=== PATIENT | female | born 1965 | race Caucasian/White ===

== ENCOUNTER 2018-09-11 15:50 | Emergency (ER) | payer MEDICARE, SELFPAY ==
[2018-09-11 15:55] VITALS: BP 155/88; PULSE 88; RESP 16; TEMP 36.8; O2SAT 99
--- NOTE | 2018-09-11 16:05 | DI.RAD_ITS ---
SYMPTOM/DIAGNOSIS: COUGH PA AND LATERAL CHEST: When compared with the previous study of 03/05/18 there has been a question regarding interval increased prominence of the mediastinum although this may be on a technical basis. The possibility of adenopathy or mass could not be entirely excluded. In addition there is a faint area of increased density projected over the left lower lobe posteriorly which is not appreciated on the patient's previous images of 03/05/18 and likely represents a small patch of pneumonitis. There is no pleural effusion. The heart is not enlarged. The hilar structures, mediastinum and tracheal air column appear intact. SUMMARY: Findings which could be consistent with an acute left lower lobe pneumonitis. Note is also made of a question regarding increased widening of the mediastinum since the previous exam of 03/05/2018 and further assessment with CT is suggested.
--- NOTE | 2018-09-11 16:10 | ED.GENADUL_ITS ---
Discharge Plan Disposition Patient Disposition: HOME Condition: Improving Discharge Details Chief Complaint: RespSymp Clinical Impression: Acute bronchitis with bronchospasm Primary Care Provider: SaraLocal ED Provider: Darren Washburn Home Meds and New Rx's Prescriptions: New doxycycline hyclate 100 mg capsule 100 mg PO BID 10 Days Qty: 20 RF: 0 codeine-guaifenesin 7.5-225 mg/5 mL liquid 5 ml PO Q4H PRN (Reason: cough) Qty: 100 RF: 0 Continued lisinopril-hydrochlorothiazide 1 EACH tablet 1 tab PO DAILY RF: 0 pantoprazole [Protonix] 20 MG tablet,delayed release (DR/EC) 20 mg PO DAILY RF: 0 ergocalciferol (vitamin D2) [Vitamin D2] 50,000 UNITS capsule 1 tab PO .WEEKLY RF: 0 ibuprofen 600 MG tablet 600 mg PO Q6H PRN (Reason: Pain) Qty: 16 RF: 0 Discontinued hydrocodone-acetaminophen 1 TAB tablet 1 tab PO Q6H PRN (Reason: Severe Pain) Qty: 6 RF: 0 Discharge Instructions Instructions: Acute Bronchitis (ED) Additional Instructions: Home to rest. May use the inhaler, as instructed for wheezing during times of illness. Return if you are requiring the inhaler more than every 4 hours. Home to rest today. Small, frequent sips of fluids to maintain hydration. May use the prescribed cough syrup as needed for persistent coughing. Please take antibiotics as prescribed Follow-up with regular doctor upon your return to [place]. Return to the emergency department for any acute concerns while in the area Medical Decision Making 53-year-old female presents with cough, congestion, wheezing over 4 days time with associated subjective fever and chills. She arrives with normal oxygenation and is afebrile after taking an antipyretic at home. Her exam reveals diffuse wheezing and cough. Differential diagnosis includes bronchitis bronchospasm and must rule out pneumonitis. Patient given albuterol inhaler and Tessalon, referred for chest x-ray. The patient's chest radiograph reveals left base atelectasis versus infiltrate. Consistent with developing pneumonitis. Patient may require ongoing use of albuterol antagonist at home for bronchospasm. I will place her on a course of antibiotics as well as a small amount of antitussive medication for home. She is stable and she is improving. She understands return precautions to the ED. HPI General Mode of arrival: ambulatory . Date/Time Provider Initiated Documentation: 09/11/18 15:51 . Limitations to Documentation: no limitations . Information obtained by: patient . History of Present Illness 53 year old F presents to the emergency department with the chief complaint of Cough, congestion, wheezing over 4 days time, described as moderate, Quality is described as dull and constant, and is localized to the chest. Patient reports no radiation. Patient started experiencing this day(s) and it has been constant. No relieving factors improve symptom(s), No exacerbating factors reported . Patient notes fever/chills. Patient did receive the following treatments prior to arrival, none Related Data Home Medications Medication Instructions Recorded Confirmed ergocalciferol (vitamin D2) 1 tab PO .WEEKLY 12/28/16 09/11/18 [Vitamin D2] lisinopril-hydrochlorothiazide 1 tab PO DAILY 12/28/16 09/11/18 pantoprazole [Protonix] 20 mg PO DAILY 12/28/16 09/11/18 ibuprofen 600 mg PO Q6H PRN #16 tab 03/05/18 09/11/18 codeine-guaifenesin 5 ml PO Q4H PRN #100 ml 09/11/18 doxycycline hyclate 100 mg PO BID 10 Days #20 cap 09/11/18 Previous Rx's Medication Instructions Recorded ibuprofen 600 mg PO Q6H PRN #16 tab 03/05/18 codeine-guaifenesin 5 ml PO Q4H PRN #100 ml 09/11/18 doxycycline hyclate 100 mg PO BID 10 Days #20 cap 09/11/18 Allergies Allergy/AdvReac Type Severity Reaction Status Date / Time No Known Allergies Allergy Unverified 03/05/18 15:57 General Stated Complaint: RespSymp ALEKSANDRA: 3 Review of Systems Review of Systems 6 systems reviewed and otherwise neg PFSH Social History Smoking/Tobacco Use Status: Never Exam Narrative Exam Narrative: GEN: awake, alert, oriented 3. Pleasant, well groomed, interactive. HEAD: Normocephalic, atraumatic ENT: Mucous membranes moist, oropharynx unremarkable, External ear exam unremarkable EYES: PERRL, EOMI NECK: Full ROM, no KRYS, no menigismus CHEST/RESP: Nontender, cough noted with bilateral end exp wheeze CARDIOVASCULAR: RRR, no murmur, rub marie. 2+ Rad pulse bilateral ABDOMEN: Soft, nontender, no mass. +Bowel sounds EXT: Full ROM, no edema, no rash Neuro: Grossly normal neurologic exam, conversant, interactive. Psych: Speech fluent, thoughts congruent, affect normal Course Vital Signs Temperature 36.8 C 09/11/18 15:55 Pulse 88 09/11/18 15:55 Respiratory Rate 16 09/11/18 15:55 Blood Pressure 155/88 H 09/11/18 15:55 Pulse Oximetry 99 09/11/18 15:55 Temperature 36.8 C 09/11/18 15:55 Temperature Source Temporal Artery Scan 09/11/18 15:55 Pulse 88 09/11/18 15:55 Respiratory Rate 16 09/11/18 15:55 Respiratory Effort 09/11/18 16:00 Blood Pressure 155/88 H 09/11/18 15:55 Blood Pressure Position Sitting 09/11/18 15:55 Pulse Oximetry 99 09/11/18 15:55 Oxygen Delivery Method Room Air 09/11/18 15:55 Oxygen Flow Rate 0 09/11/18 15:55 Pain Level 5 09/11/18 15:55 Comment 09/11/18 15:55
[2018-09-11] MEDS: Benzonatate 100 MG CAP 200 MG PO (16:18)
[2018-09-11] MEDS: Albuterol HFA 8 GM 60 PUFF INH IH (16:19)
--- NOTE | 2018-09-11 17:28 | DI.VRAD_ITS ---
EXAM: XR Chest, 2 Views EXAM DATE/TIME: 09/11/2018 4:07 PM CLINICAL HISTORY: 53 years old, female; Pain; Other: Cough TECHNIQUE: XR of the chest, 2 views. COMPARISON: CR RIGHT RIBS TO INCLUDE CXR 03/05/2018 5:02 PM FINDINGS: Lungs: Minimal streaky opacity in the LEFT lung base could represent infiltrate or segmental atelectasis. RIGHT lung is clear. Pleural space: There is no evidence of pleural effusion or pneumothorax. Heart/Mediastinum: Mild enlargement of the cardiomediastinal silhouette. Bones/joints: No acute osseous findings. IMPRESSION: 1. Enlargement of the cardiomediastinal silhouette and since the previous exam. It is possible that this is technical. However, true enlargement should be considered. 2. Streaky opacity at the LEFT lung base may represent subsegmental atelectasis or infiltrate, new since the previous exam. Dictated and Authenticated by: Pina Talley MD. Ordering:ISAIAH Banks MD
--- NOTE | 2018-09-11 19:10 | RESPIRATORY ---
09/08/2018-MDI and Spacer education with Pt. Pt has good technique with 10 sec breath hold.
== END 2018-09-11 17:37 | disposition home or self-care (01) ==
LOC: ER 16:57
PROVIDERS: Emergency Provider Emergency Medicine
DX: J20.9 Acute bronchitis, unspecified (principal)
CPT/HCPCS: 94640; 99283; 71046

== ENCOUNTER 2022-11-23 11:39 | Outpatient (REF) | payer OTHER, SELFPAY ==
[2022-11-23 13:48] LABS: Bilirubin Negative (Negative); Blood Negative (Negative); Clarity Clear (Clear); Glucose 100 mg/dL (Negative); Ketones Negative (Negative); Leukocyte Esterase Negative (Negative); Nitrite Positive (Negative)
[2022-11-23 14:05] LABS: Bacteria Few HPF (Negative); C & S Indicated? Yes; Casts 0-2 Hyaline LPF (Negative); Crystals Negative HPF (Negative); Epithelial Cells Rare HPF (Negative); Mucus Negative (Negative); RBC Negative HPF (0-2); WBC Negative HPF (0-5)
== END 2022-11-23 11:40 | disposition home or self-care (01) ==
LOC: LBN 11:39
PROVIDERS: Visit Provider Nurse Practitioner Family
DX: R39.89 Other symptoms and signs involving the genitourinary system (principal); R30.0 Dysuria
CPT/HCPCS: 81003; 81015; 87086

== ENCOUNTER 2022-11-27 15:45 | Outpatient (REF) | payer OTHER, SELFPAY ==
[2022-11-27 20:59] LABS: Bilirubin Negative (Negative); Blood Trace-intact (Negative); Clarity Sl Cloudy (Clear); Glucose 100 mg/dL (Negative); Ketones Negative (Negative); Leukocyte Esterase Negative (Negative); Nitrite Positive (Negative); Specific Gravity 1.015 (1.005-1.025)
[2022-11-27 21:13] LABS: Bacteria Moderate HPF (Negative); C & S Indicated? Yes; Casts Negative LPF (Negative); Crystals Negative HPF (Negative); Epithelial Cells Few HPF (Negative); Mucus Negative (Negative); Other Cells Negative (Negative)
== END 2022-11-27 15:46 | disposition home or self-care (01) ==
LOC: LBN 15:45
PROVIDERS: Visit Provider Physician Assistant
DX: R30.0 Dysuria (principal); N39.0 Urinary tract infection, site not specified
CPT/HCPCS: 81003; 81015; 87086

== ENCOUNTER 2025-05-22 18:56 | Emergency (ER) | payer OTHER, SELFPAY ==
--- NOTE | 2025-05-22 19:00 | RT.EKG_ITS ---
APPROVED REPORT Exam: Resting ECG Reason for Exam: abd pain into chest Patient Location: E HR:83 bpm ECG Measurements Heart Rate 83 AXIS MD 157 P 75 QRSd 97 QRS 81 QT 383 T 62 QTc 451 Conclusion Sinus rhythm...normal P axis, V-rate 60- [address] segment or T wave abnormalities to suggest occlusive NC
[2025-05-22 19:01] VITALS: BP 137/92; PULSE 80; RESP 16; TEMP 36.6; O2SAT 100
[2025-05-22 19:06] VITALS: BP 137/92; PULSE 80; RESP 16; TEMP 36.6; O2SAT 100
--- NOTE | 2025-05-22 19:15 | DI.CT_ITS ---
Exam(s) CT ABDOMEN PELVIS CTA EXAM: CT ABDOMEN PELVIS CTA CLINICAL HISTORY: sudden severe LLQ pain, guarding, TTP. TECHNIQUE: Imaging Protocol: Axial CT angiography was performed with multi- slice acquisition and multi-planar and/or 3D reconstructions. CONTRAST MATERIAL: Intravenous: Omnipaque 350 Contrast volume:75 ml Oral: no COMPARISON: No exams were available for comparison FINDINGS: Vasculature: There no visible atherosclerotic changes Aorta: No aneurysm. No dissection. No significant stenosis. Iliac Arteries: No evidence of stenosis. Common Femoral Arteries: No evidence of stenosis. Celiac [place]:No evidence of stenosis. SMA: No evidence of stenosis. Renal Arteries: No evidence of stenosis. There is a single renal artery perfusing each kidney. RENETTA: Patent. Venous structures: Patent. Lung bases:No acute findings. Liver: Normal size. Normal density. No suspicious mass. Tiny hemangioma near the liver dome. No follow-up recommended. Gallbladder and biliary tract: No evidence of calculi. No gallbladder wall thickening. No biliary dilation. Pancreas: Normal density, no abnormal calcifications or inflammatory process. Spleen: Normal. Kidneys: Normal size, contour and axis. No obstructive uropathy. No suspicious masses seen. No evidence of calculi. Adrenal glands: No masses seen. Bladder: Arm obscured by artifact from hip prostheses. Bowel: Evaluation somewhat limited due to lack of intra-abdominal fat and lack of oral contrast. No obstruction or bowel wall thickening. Increased quantity of stool and fecalization of distal small bowel, consistent with constipation. Peritoneal cavity: No ascites. No focal collection. No mesenteric inflammatory response. Lymph nodes: Within normal limits. Reproductive: This region is obscured by artifact from hip prosthesis. Soft Tissues:Unremarkable. Bones: Bilateral hip prostheses create artifact in the pelvis. There are degenerative disc changes from L3-4 through L5-S1. IMPRESSION: No evidence of aneurysm or dissection. No evidence vascular occlusion or significant stenosis. No significant atherosclerotic disease. No evidence of mesenteric ischemia. The exam is limited by lack of intra- abdominal fat and artifact from bilateral hip prostheses. Large quantity of stool consistent with constipation. The preliminary [facility] report was reviewed. RADIATION DOSE DELIVERED: Total DLP DATA REPOSITORY: All CT scans at this facility are submitted to the National Radiology Data Registry (NRDR) Dose Index Registry (DIR) with the [employer] (ACR). RADIATION OPTIMIZATION: All CT scans at this facility use at least one of these dose optimization techniques: automated exposure control; mA and/or kV adjustment per patient size (includes targeted exams where dose is matched to clinical indication); or iterative reconstruction.
--- NOTE | 2025-05-22 19:22 | W.ED.GENAD ---
Discharge Plan Disposition Patient Disposition: Against Medical Advice Condition: Serious Discharge Details Clinical Impression: Abdominal pain Primary Care Provider: Sara,Local ED Provider: Haven Panda Home Meds and New Rx's Prescriptions: Continued sumatriptan succinate 100 mg tablet See Rx Instructions PO .COMPLEX Qty: 10 0RF Rx Instructions: take 1 tab at onset of headache; if no relief, may repeat 1 tab after at least 2 hrs; max = 2 tabs/24 hrs PO phenazopyridine [Pyridium] 200 mg tablet 200 mg PO TID PRN (Reason: pain) Qty: 6 0RF phenazopyridine [Pyridium] 100 mg tablet 100 mg PO QPC PRN (Reason: pain) Qty: 6 0RF lisinopril-hydrochlorothiazide 1 EACH tablet 1 tab PO DAILY pantoprazole [Protonix] 20 MG tablet,delayed release (DR/EC) 20 mg PO DAILY Discharge Instructions Instructions: Ovarian Torsion, Abdominal Pain, Adult ED Additional Instructions: -Your blood work is overall reassuring; you do have a slightly low sodium and magnesium and should followup with your primary care doctor for this. -Your CT scan did now show any reason for your pain. You do have an incidental renal cyst; you should also followup with your primary care doctor for this as they may want to repeat imaging at some point. -Your severe lower abdominal pain is worrisome for something called ovarian torsion- this requires an ultrasound to diagnosis and is surgical emergency. If untreated it can lead to loss of the ovary, necrosis, infection, sepsis, and possibly . We have not ruled this out with the CT scan. I would also like to repeat your cardiac enzymes (which were normal) to see if they are changing since you had some possible chest pain earlier; it is unlikely but not impossible that you are having a heart attack. It is also possible you have a urinary tract infection and we would like to test your urine. -We would like you to stay in the emergency department for an ultrasound (or if not able to call someone in, transfer to a facility capable of such) but have chosen to leave against medical advice. I know your pain is better but this may be because of the morphine. Please return immediately if your pain returns, if you are able to deal with the tasks you need to address at home, or if you change your mind. We would be happy to see you again. HPI General Mode of arrival: ambulatory. Date/Time Provider Initiated Documentation: 05/22/25 18:59. Limitations to Documentation: no limitations. Information obtained by: patient. HPI Narrative: 60yo F with hx of HTN, arthritis, pituitary adenoma surgical resected over 10 years ago, presenting with acute severe LLQ abdominal pain. Started about an hour prior to arrival, 06/26, at it's worse makes it so she is in too much pain to walk or take a deep breath. Located in LLQ, at one point felt like it 'shot up' her left side to under breast. Nausea when the bad is very bad, no vomiting. No diarrhea. No bloody stool or melena. LBM yesterday, normal. No dysuria, hematuria, or flank pain. Presented initially to urgent care; was sent to the ED (did receive 1g tylenol [employer]). Aside from episode of radiation to under left breast, no chest pain at any point. No shortness of breath or lighttheadedness. Has never has pain like this before. Post menopausal. Otherwise in her usual state of health with no fevers, chills, rash, LE edema, or other concerns. Related Data Home Medications ?Medication ?Instructions ?Recorded ?Confirmed lisinopril 20 1 tab PO DAILY 12/28/16 05/22/25 mg-hydrochlorothiazide 12.5 mg tablet pantoprazole 20 mg tablet,delayed 20 mg PO DAILY 12/28/16 05/22/25 release (Protonix) phenazopyridine 100 mg tablet 100 mg PO QPC PRN pain 6 doses #6 11/23/22 05/22/25 (Pyridium) tabs phenazopyridine 200 mg tablet 200 mg PO TID PRN pain 6 doses #6 11/27/22 05/22/25 (Pyridium) tabs sumatriptan succinate 100 mg tablet See Rx Instructions PO .COMPLEX 11/27/22 05/22/25 #10 tabs Previous Rx's ?Medication ?Instructions ?Recorded phenazopyridine 100 mg tablet 100 mg PO QPC PRN pain 6 doses #6 11/23/22 (Pyridium) tabs phenazopyridine 200 mg tablet 200 mg PO TID PRN pain 6 doses #6 11/27/22 (Pyridium) tabs sumatriptan succinate 100 mg tablet See Rx Instructions PO .COMPLEX 11/27/22 #10 tabs Allergies Allergy/AdvReac Type Severity Reaction Status Date / Time No Known Allergies Allergy Verified 05/22/25 19:00 General Stated Complaint: Abd Prob ALEKSANDRA: 3 Review of Systems Narrative: see HPI Exam Narrative Exam Narrative: General: Alert, appears to be in pain Head: Normocephalic, atraumatic Neck: Trachea midline, ?Neck supple. ENT: ?MMM.? No oropharygeal lesions or exudate. Cardiac: ?RRR, no murmurs appreciated Resp: No respiratory distress. CTAB. Abd: ?Soft, non-distended, TTP of left LLQ with guarding. : ?No suprapubic tenderness. No CVA tenderness. Extremities: ?No deformities.? No peripheral edema. Neurologic: GCS 15. ? Moves all extremities freely against gravity Course Vital Signs Vital signs: Vital Signs Temperature 36.6 C 05/22/25 19:01 Pulse 80 05/22/25 19:01 Respiratory Rate 16 05/22/25 19:01 Blood Pressure 137/92 H 05/22/25 19:01 Pulse Oximetry 100 05/22/25 19:01 Temperature 36.6 C 05/22/25 19:06 Temperature Source Tympanic 05/22/25 19:06 Pulse 80 05/22/25 19:06 Respiratory Rate 16 05/22/25 19:06 Blood Pressure 137/92 H 05/22/25 19:06 Blood Pressure Position Supine 05/22/25 19:06 Pulse Oximetry 100 05/22/25 19:06 Oxygen Delivery Method Room Air 05/22/25 19:06 Oxygen Flow Rate 0 05/22/25 19:06 Pain Level 10 05/22/25 19:06 Medical Decision Making 60yo F with hx of HTN, arthritis, pituitary adenoma surgical resected over 10 years ago, presenting with acute severe LLQ abdominal pain. Started about an hour prior to arrival, 06/26. No vomiting, diarrhea, or GI bleeding. No urinary symptoms. No vaginal discharge or bleeding. Pain did radiate upward to left breast briefly; low suspicion for ACS but will get EKG and troponins. Appears to be in severe pain on arrival, LLQ TTP with voluntary guarding. Broad differential of serious pathology including bowel obstruction, complicated diverticultis, mesenteric ischemia, nephrolithiasis, ovarian cyst rupture, ovarian torsion, etc. Will give morphine and zofran for symptoms while awaiting results of workup. -EKG SR, appropriate intervals, no ST segment or T wave abnormalities to suggest occlusive UT. -Labs reviewed as below, CBC reassuring with no leukocytosis or anemia, CMP with no actionable abnormalities, Mg borderline low at 1.7 (oral replacement ordered), lipase not suggestive of pancreatitis, BNP not suggestive of heart failure, initial troponin normal. Will get 1 hour trop to followup. Awaiting urine for UA. -CTA abd pelvis independently reviewed; no free fluid or clear obstruction on my view, radiology read below with no acute findings. On reassessment patient reports pain has improved. Abd remains moderately tender though much less than before, no guarding. Vital signs remain reassuring. I remain concerned for ovarian pathology including torsion (possibly intermittent); plan for pelvic exam and US. Attempted to call in someone in to perform pelvic US (sporadic US availability at night) with possible need for transfer to another facility if no-one available. Patient subsequently stating she needs to leave. I discussed at length her my concerns for life-threatening pathology with an emphasis on ovarian torsion as I feel this is a likely diagnosis given the severity of her symptoms on arrival and the results of her workup thus far; she verbalized understanding of my concerns and states that she needs to leave as her mother is at home alone and unwell (currently undergoing chemotherapy) and does not do well at home by herself at night. I empathized with this but advised her that I would be quite around about her should she choose to leave and again stressed the potential for deterioration in her condition up to and including and permanent disability; she voiced understanding of these concerns and again stated that she needed to leave. She demonstrates decision making capacity and I have no indication to hold her against her will. Left AMA; she was encouraged to return to the ED should she change her mind, her symptoms worsen, or should she be able to make arrangements for her mother and she expressed understanding of this. Left AMA. Discharge instructions were reviewed with patient who verbalized understanding; all questions were answered. IMPRESSION: 1. Limited study given streak artifact in the pelvis. 2. No acute intra-abdominal findings where visualized. 3. The appendix is not visualized; however there are no ancillary findings to suggest acute appendicitis. Lab Data Lab results reviewed: Yes I reviewed the patient's lab results. Labs: Laboratory Tests Range/Units 05/22/25 05/22/25 05/22/25 19:30 20:20 22:20 WBC (4.4-10.8) 10^3/uL 6.57 RBC (3.93-5.22) 10^6/uL 3.84 L Hgb (11.2-15.7) g/dL 12.0 Hct (36.0-46.0) % 35.5 L MCV (80-95) fL 92 MCH (27.0-33.0) pg 31.3 MCHC (32.0-36.0) % 33.8 RDW (11.7-14.6) % 12.4 Plt Count (130-400) 10^3/uL 375 MPV (8.0-11.0) fL 9.6 Immature Gran % % 0.3 Neutrophils % % 60.1 Lymphocytes % % 31.2 Monocytes % % 6.7 Eosinophils % % 0.6 Basophils % % 1.1 Nucleated RBC % (0.0-0.3) % 0.0 Absolute Neutrophils (1.2-6.7) 10^3/uL 3.95 Absolute Lymphocytes (1.2-3.4) 10^3/uL 2.05 Absolute Monocytes (0.1-0.8) 10^3/uL 0.44 Absolute Eosinophils (0.0-0.7) 10^3/uL 0.04 Absolute Basophils (0.0-0.2) 10^3/uL 0.07 VBG Lactate (<or=2.0) mmol/L 0.8 Sodium (136-145) mmol/L 134 L Potassium (3.5-5.1) mmol/L 3.8 Chloride (98-107) mmol/L 98 Carbon Dioxide (21.0-32.0) mmol/L 29.0 Anion Gap (3-11) mmol/L 7.0 BUN (7-18) mg/dL 17 Creatinine (0.55-1.02) mg/dL 0.6 Est GFR (CKD-EPI 2020) (mL/min/1.73m2) 103.98 Glucose (74-106) mg/dL 93 Calcium (8.5-10.1) mg/dL 8.9 Magnesium (1.8-2.4) mg/dL 1.7 L Total Bilirubin (0.2-1.0) mg/dL 0.4 AST (15-37) U/L 18 ALT (14-59) U/L 30 Alkaline Phosphatase (46-116) U/L 66 Troponin I (<or=51) ng/L 5 Cancelled Cancelled NT-Pro-B Natriuret Pep (<300) pg/mL 40 Total Protein (6.4-8.2) g/dL 6.7 Albumin (3.4-5.0) g/dL 4.1 Lipase (<78) U/L 56 Serum HCG, Qual Negative PFSH All Active Problems (Updated 05/22/25 @ 20:58 by Haven Panda MD) Abdominal pain (Acute) Social History Smoking/Tobacco Use Status: Never Smoking risk assessment performed?: Yes Alcohol Intake: never Drug use: Never Housing: house Do you feel safe at home: Yes Do you feel safe in your relationship?: Yes
[2025-05-22 19:39] LABS: Abs Immature Grans 0.02 10^3/uL (0.0-0.06); HCT 35.5 % (36.0-46.0); HGB 12.0 g/dL (11.2-15.7); Immature Grans % 0.3 %; MCH 31.3 pg (27.0-33.0); MCHC 33.8 % (32.0-36.0); MCV 92 fL (80-95); MPV 9.6 fL (8.0-11.0); Platelet Count 375 10^3/uL (130-400); RBC 3.84 10^6/uL (3.93-5.22); RDW 12.4 % (11.7-14.6); RDW-SD 42.2 fL; WBC 6.57 10^3/uL (4.4-10.8)
[2025-05-22] MEDS: Ondansetron 4 MG/2 ML VIAL IVP (19:43)
[2025-05-22] MEDS: MORPHine 4 MG/ML SYR IVP (19:43)
[2025-05-22] MEDS: Normal Saline - Diluent 50 ML VIAL IJ (19:44)
[2025-05-22] MEDS: Normal Saline Flush 10 ML SYR IVP (19:44)
[2025-05-22] MEDS: Omnipaque 350 MG/ML 100 ML BTL IJ (19:45)
[2025-05-22 19:52] LABS: HCG Qual (Serum) Negative
[2025-05-22 20:03] LABS: ALT 30 U/L (14-59); AST 18 U/L (15-37); Albumin 4.1 g/dL (3.4-5.0); Alkaline Phosphatase 66 U/L (46-116); Anion Gap 7.0 mmol/L (3-11); BUN 17 mg/dL (7-18); Bilirubin, Total 0.4 mg/dL (0.2-1.0); CO2 29.0 mmol/L (21.0-32.0); Calcium 8.9 mg/dL (8.5-10.1); Chloride 98 mmol/L (98-107); Estimated GFR 103.98 (mL/min/1.73m2); Glucose 93 mg/dL (74-106); Lipase 56 U/L (<78); Magnesium 1.7 mg/dL (1.8-2.4); NT-proBNP 40 pg/mL (<300); Potassium 3.8 mmol/L (3.5-5.1); Sodium 134 mmol/L (136-145); Total Protein 6.7 g/dL (6.4-8.2); Troponin I 5 ng/L (<or=51)
--- NOTE | 2025-05-22 20:33 | DI.[facility]AD_ITS ---
PROCEDURE INFORMATION: Exam: CTA Abdomen and Pelvis With Contrast Exam date and time: 05/22/2025 7:22 PM Age: 60 years old Clinical indication: Other: Sudden severe llq pain, guarding, ttp TECHNIQUE: Imaging protocol: Computed tomographic angiography of the abdomen and pelvis with contrast. Exam focused on the arteries. 3D rendering (Not supervised by radiologist): MIP and/or 3D reconstructed images were created by the technologist. Contrast material: OMNIPAQUE 350; Contrast volume: 75 ml; Contrast route: INTRAVENOUS (IV); COMPARISON: No relevant prior studies available. FINDINGS: Lungs: Lung bases are clear. Aorta: The aorta demonstrates normal course and caliber. Celiac trunk and mesenteric arteries: The SMA and celiac axis are widely patent. The RENETTA is widely patent. Renal arteries: The renal arteries are widely patent. Right iliac arteries: No occlusion or significant stenosis. Left iliac arteries: No occlusion or significant stenosis. Liver: The liver has a normal appearance. A hypervascular focus is present within the right lobe suggesting a flash filling hemangioma. Gallbladder and biliary ducts: The gallbladder is unremarkable. No biliary ductal dilatation. Pancreas: The pancreas demonstrates normal size. No pancreatic ductal dilatation. Spleen: The spleen demonstrates normal size. Adrenal glands: The adrenal glands have a normal appearance. Kidneys and ureters: There is a low-density left renal cyst. The kidneys are normal in size. Stomach and bowel: The bowel demonstrates overall normal caliber and wall thickness. Appendix: The appendix is not visualized; however there are no ancillary findings to suggest acute appendicitis such as free right lower quadrant fluid or perienteric fat stranding. Intraperitoneal space: Unremarkable. No free air. No significant fluid collection. Lymph nodes: Unremarkable. No enlarged lymph nodes. Urinary bladder: The bladder is grossly normal but is poorly characterized given streak artifact. Reproductive: The uterus and ovaries are not visualized. Bones/joints: Bones have a normal appearance. No acute fracture or suspicious bone lesion. Bilateral hip arthroplasties are grossly intact. Soft tissues: Unremarkable. IMPRESSION: 1. Limited study given streak artifact in the pelvis. 2. No acute intra-abdominal findings where visualized. 3. The appendix is not visualized; however there are no ancillary findings to suggest acute appendicitis. Dictated and Authenticated by: Patricia Corona MD. Orderin Amarilys Orourke MD
[2025-05-22] MEDS: Magnesium Gluconate 500 MG TAB PO (21:16)
[2025-05-22 21:25] VITALS: BP 116/75; PULSE 92; RESP 17; TEMP 36.9; O2SAT 99
== END 2025-05-22 21:34 | disposition left against medical advice (07) ==
PROVIDERS: Emergency Provider Student in an Organized Health Care Education/Training Program
DX: R10.32 Left lower quadrant pain (principal); Z86.018 Personal history of other benign neoplasm
CPT/HCPCS: 99283; 99285; 96374; 96375; 36415; 80053; 83690; 93005; 74174; 83605; 83735; 83880; 84484; 84703; 85025; 93010; J2270; J2405; J3490

== ENCOUNTER 2025-08-05 15:57 | Outpatient (CLI) | payer OTHER, SELFPAY ==
--- NOTE | 2025-08-05 13:38 | DI.RAD_ITS ---
Exam(s) XR SHOULDER RT COMPLETE 2+V EXAM: XR SHOULDER RT COMPLETE 2+V CLINICAL HISTORY: RIGHT SHOULDER PAIN. TECHNIQUE: 2D digital imaging was performed. Five views. COMPARISON: CR XR CHEST 2V PA LATERAL from 09/11/2018 FINDINGS: BONES: No acute fracture is present. There is a large defect at the articular surface of the humeral head which appears old. No bony destructive lesion is seen. JOINTS: No dislocation present. There is severe narrowing of the glenohumeral joint. There is spurring from the inferior glenoid and humeral head. The humeral head appears articulate with the undersurface of the acromion which shows spurring. This is consistent with chronic rotator cuff tear. SOFT TISSUE: Calcifications are noted beneath the humeral head, likely in the glenohumeral joint space. IMPRESSION: Severe degenerative changes of the glenohumeral joint. Chronic rotator cuff tear. Old defect at the articular aspect of the humeral head. DATA REPOSITORY: RADIATION DOSE DELIVERED:
== END 2025-08-05 15:58 | disposition home or self-care (01) ==
LOC: DIORS 15:58
PROVIDERS: Visit Provider Student in an Organized Health Care Education/Training Program
DX: M25.511 Pain in right shoulder (principal); M19.011 Primary osteoarthritis, right shoulder; M75.101 Unspecified rotator cuff tear or rupture of right shoulder, not specified as traumatic
CPT/HCPCS: 73030